=== PATIENT | male | born 1935 | race Caucasian/White ===

== ENCOUNTER → 2017-03-16 | Outpatient (CLI) | payer MEDICARE ==
[~2017-03-16] MED LIST: AMLO5TAB2 PO; ASPI-555 PO; ATOR20TA65 PO; CLOP75TA14 PO; DEXA5DRO4 OP; LATA2.5D2 OU; METF500T6 PO; METO-391 PO; MURO OU; PSYL1PAC11 PO; TAMS0.4C32 PO; [UNRECOGNIZED DRUG - CODE] OU
== END | disposition home or self-care (01) ==
LOC: RAH 13:49
PROVIDERS: ATTEND Internal Medicine Critical Care Medicine
DX: R05 Cough (principal)
CPT/HCPCS: 71046

== ENCOUNTER 2017-03-18 16:06 | Emergency (ER) | payer MEDICARE ==
[~2017-03-18 16:06] MED LIST changes: -DEXA5DRO4 OP; -LATA2.5D2 OU; -MURO OU; -PSYL1PAC11 PO; -[UNRECOGNIZED DRUG - CODE] OU
[2017-03-18] MEDS ORDERED: GUAIFENESIN-DM 200/20 MG 10 ML ONE (16:49)
[2017-03-18] MEDS ORDERED: SODIUM CHLORIDE 0.9% 1000ML 1,000 ML IV ONE (16:50)
[2017-03-18 16:52] LABS: BASOPHILS % (AUTO) 0.4 % (0.0-5.0); EOSINOPHILS % (AUTO) 0.9 % (0.0-8.0); HEMATOCRIT 40.4 % (42-54); LYMPHOCYTES % (AUTO) 45.9 % (21.0-51.0); MEAN CORPUSCULAR HEMOGLOBIN 32.7 pg (27.0-33.0); MEAN CORPUSCULAR HGB CONC 34.8 g/dL (32.0-36.0); MONOCYTES % (AUTO) 14.2 % (3.0-13.0); NEUTROPHILS % (AUTO) 38.6 % (40.0-77.0); PLATELET COUNT (AUTO) 270 K/uL (130-400); RED CELL DISTRIBUTION WIDTH 12.5 % (11.0-15.5); WHITE BLOOD COUNT (AUTO) 5.3 K/uL (4.8-10.8)
[2017-03-18 17:04] LABS: CREATININE 1.1 mg/dL (0.5-1.5); POTASSIUM 3.6 mmol/L (3.5-5.1)
[2017-03-18 17:04] LABS: APPEARANCE,URINE Clear (CLEAR); BILIRUBIN,URINE Negative (NEGATIVE); COLOR,URINE Dark Yellow (YELLOW); GLUCOSE, URINE (UA) Negative (NEGATIVE); KETONES,URINE Trace mg/dL (NEGATIVE); LEUKOCYTE ESTERASE ,URINE Negative (NEGATIVE); NITRATE,URINE Negative (NEGATIVE); OCCULT BLOOD,URINE Negative (NEGATIVE); PROTEIN,URINE Negative (NEGATIVE)
[2017-03-18 17:25] LABS: B-TYPE NATRIURETIC PEPTIDE 24 pg/mL (0-100)
[2017-03-18 17:35] LABS: BACTERIA,URINE Few /HPF (None Seen); RBC,URINE 0-1 /HPF (0-1); WBC,URINE 0-1 /HPF (0-1)
[2017-03-18 17:36] LABS: MUCUS,URINE Few LPF (None Seen); SQUAMOUS EPITHELIAL CELL,UR Few /LPF (0-2)
[2017-03-18] MEDS ORDERED: CEFTRIAXONE SODIUM 1 GM ONE (18:02)
[2017-03-18] MEDS ORDERED: AZITHROMYCIN 250 MG TABLET PO ONE ×2 (18:03→18:11)
[2017-03-18] MEDS ORDERED: BENZONATATE 100 MG CAPSULE PO ONE (18:13)
[2017-03-18] MEDS ORDERED: GUAIFENESIN-CODEINE 5 ML SYRUP ONE (18:14)
== END 2017-03-18 19:13 | disposition home or self-care (01) ==
LOC: EDH 16:06
DX: J18.9 Pneumonia, unspecified organism (principal); I25.10 Atherosclerotic heart disease of native coronary artery without angina pectoris; E11.9 Type 2 diabetes mellitus without complications; I10 Essential (primary) hypertension; Z88.6 Allergy status to analgesic agent; Z72.0 Tobacco use
CPT/HCPCS: 36415; 71046; 80048; 81001; 83880; 84484; 85025; 87804 ×2; 93005; 96374; 99285; J0696; J7030

== ENCOUNTER 2017-04-21 23:11 | Inpatient (IN) | payer MEDICARE ==
[~2017-04-21] VITALS: Ht 170.2 cm; Wt 110.5 kg
[2017-04-21 23:46] LABS: BASOPHILS % (AUTO) 2.4 % (0.0-5.0); EOSINOPHILS % (AUTO) 1.5 % (0.0-8.0); HEMATOCRIT 43.4 % (42-54); INR 0.95 (0.85-1.15); MEAN CORPUSCULAR HEMOGLOBIN 31.7 pg (27.0-33.0); MEAN CORPUSCULAR HGB CONC 33.9 g/dL (32.0-36.0); MEAN CORPUSCULAR VOLUME 93.8 fL (79-99); MONOCYTES % (AUTO) 6.6 % (3.0-13.0); NEUTROPHILS % (AUTO) 78.5 % (40.0-77.0); PLATELET COUNT (AUTO) 236 K/uL (130-400); RED BLOOD CELL COUNT(AUTO) 4.63 MIL/uL (4.50-6.20); RED CELL DISTRIBUTION WIDTH 13.3 % (11.0-15.5); WHITE BLOOD COUNT (AUTO) 13.6 K/uL (4.8-10.8)
[2017-04-21 23:48] LABS: ALBUMIN 3.9 g/dL (3.5-5.0); BILIRUBIN,TOTAL 0.4 mg/dL (0.2-1.0); TOTAL PROTEIN, SERUM 7.3 g/dL (6.0-8.3)
[2017-04-21] MEDS ORDERED: TETANUS/DIPHTHERIA TOXOID [ADULT] 0.5 ML VIAL IM ONE (23:55)
[2017-04-22] MEDS ORDERED: OCTYL 2-CYANOACRYLATE 1 EACH TP ONE (01:58)
[2017-04-22] MEDS ORDERED: SODIUM CHLORIDE 0.9% 1000ML 1,000 ML IV ONE (02:23)
[2017-04-22 03:10] VITALS: BP 156/82
[2017-04-22] MEDS ORDERED: PSYL1PAC11 PO (03:48)
[2017-04-22 04:00] VITALS: BP 122/62
[2017-04-22] MEDS ORDERED: PHARMACY COMMUNICATION MISC SCH (05:15)
[2017-04-22] MEDS ORDERED: POTASSIUM CHLORIDE 10% ELIXIR 20 MEQ/15 ML UDCUP PO PRN (06:15)
[2017-04-22] MEDS ORDERED: POTASSIUM CHLORIDE 20MEQ/100ML 100 ML IV PRN (06:15)
[2017-04-22] MEDS ORDERED: LIDOCAINE HCL-MPF 1% 2ML VIAL IVP PRN (06:15)
[2017-04-22] MEDS ORDERED: ONDANSETRON HCL 4 MG/2 ML VIAL IV PRN (06:15)
[2017-04-22] MEDS: CHLORDIAZEPOXIDE HCL 25 MG CAP PO SCH ×3 (06:45→21:17)
[2017-04-22] MEDS: INSULIN HUMULIN R 100 UNIT/ML 3ML SQ SCH ×4 (06:47→20:55)
[2017-04-22 06:58] LABS: APPEARANCE,URINE CLEAR (CLEAR); BILIRUBIN,URINE NEGATIVE (NEGATIVE); COLOR,URINE YELLOW (YELLOW); GLUCOSE, URINE (UA) NEGATIVE (NEGATIVE); KETONES,URINE 5 mg/dL (NEGATIVE); LEUKOCYTE ESTERASE ,URINE NEGATIVE (NEGATIVE); NITRATE,URINE NEGATIVE (NEGATIVE); OCCULT BLOOD,URINE NEGATIVE (NEGATIVE); PH,URINE 5.5 (5.0-8.0); PROTEIN,URINE NEGATIVE (NEGATIVE); UROBILINOGEN,URINE 0.2 mg/dL (0.2-1.0)
[2017-04-22 07:06] LABS: AMPHET/METH SCREEN,URINE NEGATIVE (NEGATIVE); BARBITURATE SCREEN, URINE NEGATIVE (NEGATIVE); BENZODIAZEPINES SCREEN,URINE NEGATIVE (NEGATIVE); CANNABINOID SCREEN,URINE NEGATIVE (NEGATIVE); COCAINE SCREEN,URINE NEGATIVE (NEGATIVE); OPIATE SCREEN,URINE NEGATIVE (NEGATIVE); PHENCYCLIDINE SCREEN,URINE NEGATIVE (NEGATIVE)
[2017-04-22 07:22] LABS: BACTERIA,URINE Rare /HPF (None Seen); HYALINE CASTS, URINE 0-1 /LPF (0-1 /LPF); MUCUS,URINE Rare LPF (None Seen); RBC,URINE 0-1 /HPF (0-1); SQUAMOUS EPITHELIAL CELL,UR Rare /LPF (0-2); WBC,URINE None Seen /HPF (0-1)
[2017-04-22 07:30] VITALS: BP 111/52
[2017-04-22] MEDS: M.V.I. IV [ADULT] 10 ML, FOLIC ACID 1 MG, THIAMINE HCL 100 MG in SODIUM CHLORIDE 0.9% 1... IV SCH (09:04)
[2017-04-22] MEDS: PANTOPRAZOLE SODIUM 40 MG TABLET.DR PO SCH (09:04)
[2017-04-22 11:00] VITALS: BP 121/56
[2017-04-22] MEDS: KETOROLAC TROMETHAMINE 15MG/ML IV PRN (11:05)
[2017-04-22 16:00] VITALS: BP 129/64
[2017-04-22] MEDS ORDERED: [UNRECOGNIZED DRUG - CODE] OU (16:46)
[2017-04-22] MEDS ORDERED: DEXA5DRO4 OP (16:46)
[2017-04-22] MEDS: DEXAMETHASONE SOD PHOSPHATE 4 MG/ML 1ML VIAL IVP SCH ×2 (19:51→23:46)
[2017-04-22 20:00] VITALS: BP 143/62
[2017-04-23] VITALS (7 sets, daily range): BP systolic 130–157; BP diastolic 60–82
[2017-04-23] MEDS: DEXAMETHASONE SOD PHOSPHATE 4 MG/ML 1ML VIAL IVP SCH ×4 (04:58→23:29)
[2017-04-23] MEDS: CHLORDIAZEPOXIDE HCL 25 MG CAP PO SCH ×3 (04:58→21:35)
[2017-04-23 05:40] LABS: HEMATOCRIT 39.7 % (42-54); MEAN CORPUSCULAR HEMOGLOBIN 32.8 pg (27.0-33.0); MEAN CORPUSCULAR HGB CONC 35.1 g/dL (32.0-36.0); MEAN CORPUSCULAR VOLUME 93.2 fL (79-99); PLATELET COUNT (AUTO) 237 K/uL (130-400); RED BLOOD CELL COUNT(AUTO) 4.26 MIL/uL (4.50-6.20); RED CELL DISTRIBUTION WIDTH 13.2 % (11.0-15.5); WHITE BLOOD COUNT (AUTO) 10.3 K/uL (4.8-10.8)
[2017-04-23] MEDS: INSULIN HUMULIN R 100 UNIT/ML 3ML SQ SCH ×4 (05:43→20:47)
[2017-04-23 05:45] LABS: CREATININE 0.9 mg/dL (0.5-1.5); POTASSIUM 4.3 mmol/L (3.5-5.1)
[2017-04-23] MEDS ORDERED: GADOBENATE DIMEGLUMINE 20 ML IV ONE (08:33)
[2017-04-23] MEDS: PANTOPRAZOLE SODIUM 40 MG TABLET.DR PO SCH (08:57)
[2017-04-23] MEDS ORDERED: PSYLLIUM SEED 1 EACH PACKET PO PRN (12:00)
[2017-04-23 12:45] LABS: PLATELET FUNCTION ANALYSIS ADP 82 SEC (62-100); PLATELET FUNCTION ANALYSIS EPI > 192 SEC (55-192)
[2017-04-23 12:46] LABS: HEMATOCRIT 39.7 % (42-54); PLATELET COUNT (AUTO) 237 K/uL (130-400)
[2017-04-23] MEDS: M.V.I. IV [ADULT] 10 ML, FOLIC ACID 1 MG, THIAMINE HCL 100 MG in SODIUM CHLORIDE 0.9% 1... IV SCH (12:53)
[2017-04-23] MEDS: BACLOFEN 10 MG TABLET PO SCH ×2 (15:55→21:35)
[2017-04-23] MEDS: TAMSULOSIN HCL 0.4 MG CAP.ER.24H PO SCH (20:03)
[2017-04-23] MEDS: METOPROLOL TARTRATE 25 MG TAB PO SCH (20:03)
[2017-04-23] MEDS: ATORVASTATIN CALCIUM 10 MG TABLET PO SCH (20:03)
[2017-04-24] VITALS (7 sets, daily range): BP systolic 107–150; BP diastolic 57–89
[2017-04-24] MEDS: DEXAMETHASONE SOD PHOSPHATE 4 MG/ML 1ML VIAL IVP SCH ×3 (05:45→17:08)
[2017-04-24] MEDS: CHLORDIAZEPOXIDE HCL 25 MG CAP PO SCH ×3 (05:45→21:16)
[2017-04-24] MEDS: INSULIN HUMULIN R 100 UNIT/ML 3ML SQ SCH ×4 (05:54→22:25)
[2017-04-24] MEDS: SODIUM CHLORIDE 5% 15 ML OPHTH SOLN OU SCH (09:00)
[2017-04-24] MEDS: BACLOFEN 10 MG TABLET PO SCH (09:00)
[2017-04-24] MEDS: DEXAMETHASONE SOD PHOSPHATE OP SCH (09:00)
[2017-04-24] MEDS: AMLODIPINE BESYLATE 5 MG TAB PO SCH (09:12)
[2017-04-24] MEDS: METOPROLOL TARTRATE 25 MG TAB PO SCH ×2 (09:12→21:16)
[2017-04-24] MEDS: PANTOPRAZOLE SODIUM 40 MG TABLET.DR PO SCH (09:12)
[2017-04-24] MEDS: FUROSEMIDE 20 MG TABLET PO SCH (11:58)
[2017-04-24] MEDS: M.V.I. IV [ADULT] 10 ML, FOLIC ACID 1 MG, THIAMINE HCL 100 MG in SODIUM CHLORIDE 0.9% 1... IV SCH (11:58)
[2017-04-24] MEDS: ATORVASTATIN CALCIUM 10 MG TABLET PO SCH (21:16)
[2017-04-24] MEDS: TAMSULOSIN HCL 0.4 MG CAP.ER.24H PO SCH (21:16)
[2017-04-25] MEDS: DEXAMETHASONE SOD PHOSPHATE 4 MG/ML 1ML VIAL IVP SCH ×4 (01:31→18:23)
[2017-04-25 04:00] VITALS: BP 128/70
[2017-04-25 05:09] LABS: HEMATOCRIT 38.7 % (42-54); MEAN CORPUSCULAR HEMOGLOBIN 32.6 pg (27.0-33.0); MEAN CORPUSCULAR HGB CONC 34.5 g/dL (32.0-36.0); MEAN CORPUSCULAR VOLUME 94.4 fL (79-99); PLATELET COUNT (AUTO) 285 K/uL (130-400); RED CELL DISTRIBUTION WIDTH 13.3 % (11.0-15.5); WHITE BLOOD COUNT (AUTO) 17.1 K/uL (4.8-10.8)
[2017-04-25 05:14] LABS: CREATININE 0.9 mg/dL (0.5-1.5); POTASSIUM 4.2 mmol/L (3.5-5.1)
[2017-04-25 05:29] LABS: B-TYPE NATRIURETIC PEPTIDE 40 pg/mL (0-100)
[2017-04-25] MEDS: INSULIN HUMULIN R 100 UNIT/ML 3ML SQ SCH ×4 (05:40→22:02)
[2017-04-25] MEDS: CHLORDIAZEPOXIDE HCL 25 MG CAP PO SCH ×3 (05:41→21:56)
[2017-04-25 07:49] VITALS: BP 150/82
[2017-04-25] MEDS: SODIUM CHLORIDE 5% 15 ML OPHTH SOLN OU SCH (09:00)
[2017-04-25] MEDS: DEXAMETHASONE SOD PHOSPHATE OP SCH (09:00)
[2017-04-25] MEDS: PANTOPRAZOLE SODIUM 40 MG TABLET.DR PO SCH (09:28)
[2017-04-25] MEDS: METOPROLOL TARTRATE 25 MG TAB PO SCH ×2 (09:28→21:56)
[2017-04-25] MEDS: FUROSEMIDE 20 MG TABLET PO SCH (09:28)
[2017-04-25] MEDS: AMLODIPINE BESYLATE 5 MG TAB PO SCH (09:28)
[2017-04-25 11:34] VITALS: BP 144/70
[2017-04-25 16:27] VITALS: BP 139/78
[2017-04-25 20:00] VITALS: BP 141/64
[2017-04-25] MEDS: TAMSULOSIN HCL 0.4 MG CAP.ER.24H PO SCH (21:56)
[2017-04-25] MEDS: ATORVASTATIN CALCIUM 10 MG TABLET PO SCH (21:56)
[2017-04-25 23:30] VITALS: BP 135/60
[2017-04-26] VITALS (30 sets, daily range): BP systolic 117–156; BP diastolic 58–85
[2017-04-26] MEDS: DEXAMETHASONE SOD PHOSPHATE 4 MG/ML 1ML VIAL IVP SCH ×4 (00:08→17:36)
[2017-04-26] MEDS: CHLORDIAZEPOXIDE HCL 25 MG CAP PO SCH ×3 (06:00→20:01)
[2017-04-26] MEDS: INSULIN HUMULIN R 100 UNIT/ML 3ML SQ SCH ×4 (06:47→21:00)
[2017-04-26] MEDS: DEXAMETHASONE SOD PHOSPHATE OP SCH (09:00)
[2017-04-26] MEDS: SODIUM CHLORIDE 5% 15 ML OPHTH SOLN OU SCH (09:00)
[2017-04-26] MEDS: AMLODIPINE BESYLATE 5 MG TAB PO SCH (09:00)
[2017-04-26] MEDS: PANTOPRAZOLE SODIUM 40 MG TABLET.DR PO SCH (09:00)
[2017-04-26] MEDS: METOPROLOL TARTRATE 25 MG TAB PO SCH ×2 (09:23→20:00)
[2017-04-26] MEDS: FUROSEMIDE 20 MG TABLET PO SCH (09:30)
[2017-04-26] MEDS ORDERED: SODIUM CHLORIDE 0.9% 1000ML 1,000 ML IV ONE ×3 (10:41→17:21)
[2017-04-26] MEDS ORDERED: MICROFIBRILLAR COLLAGEN 1 GM PACKAGE TP ONE (11:06)
[2017-04-26] MEDS ORDERED: BUPIVACAINE/PF 0.25% 30ML VIAL IJ ONE (11:06)
[2017-04-26] MEDS ORDERED: TOBRAMYCIN SULFATE 40MG/1ML VIAL ONE (11:06)
[2017-04-26] MEDS ORDERED: VANCOMYCIN HCL 1 GM VIAL ONE (11:06)
[2017-04-26] MEDS ORDERED: CITRIC ACID/SODIUM CITRATE 30 ML UDCUP ONE (11:17)
[2017-04-26] MEDS ORDERED: ONDANSETRON HCL 4 MG/2 ML VIAL ONE (11:30)
[2017-04-26] MEDS ORDERED: NEOSTIGMINE METHYLSULFATE 1MG/ML IV ONE (11:30)
[2017-04-26] MEDS ORDERED: LIDOCAINE PF 2% 5ML ABBOJECT ONE (11:30)
[2017-04-26] MEDS ORDERED: DEXAMETHASONE SOD PHOSPHATE 10MG/ML 1ML VIAL ONE (11:30)
[2017-04-26] MEDS ORDERED: GLYCOPYRROLATE 0.2 MG/ML 5 ML VIAL ONE (11:30)
[2017-04-26] MEDS ORDERED: SUCCINYLCHOLINE 200MG/10ML SYR ONE (11:31)
[2017-04-26] MEDS ORDERED: PROPOFOL 10 MG/ML 20ML VIAL IV ONE ×4 (11:31→12:49)
[2017-04-26] MEDS ORDERED: MIDAZOLAM HCL 1 MG/ML 2ML VIAL ONE (11:31)
[2017-04-26] MEDS ORDERED: FENTANYL CITRATE PF 50 MCG/1 ML 2ML VIAL ONE (11:33)
[2017-04-26] MEDS ORDERED: CEFAZOLIN SODIUM 1 GM VIAL ONE (11:55)
[2017-04-26] MEDS ORDERED: BACITRACIN 50,000 UNIT VIAL ONE (12:02)
[2017-04-26] MEDS ORDERED: EPHEDRINE SULFATE 50 MG/ML AMPULE ONE (12:03)
[2017-04-26] MEDS ORDERED: FENTANYL CITRATE PF 50 MCG/1 ML 5ML AMP IV ONE (12:05)
[2017-04-26] MEDS ORDERED: THROMBIN-JMI 20000 UNIT KIT TP ONE (12:10)
[2017-04-26] MEDS ORDERED: OCTYL 2-CYANOACRYLATE 1 EACH TP ONE (13:12)
[2017-04-26] MEDS ORDERED: IPRATROPIUM/ALBUTEROL SULFATE 3 ML SOLUTION IH ONE (14:19)
[2017-04-26] MEDS ORDERED: ACETAMINOPHEN-CODEINE 300/30MG TAB PO PRN ×2 (17:30)
[2017-04-26] MEDS: SODIUM CHLORIDE 0.9% 1000ML 1,000 ML IV SCH (17:30)
[2017-04-26] MEDS ORDERED: TRIMETHOBENZAMIDE HCL 100MG/1ML VIAL IM PRN (17:30)
[2017-04-26] MEDS: LORAZEPAM 2 MG/ML 1 ML VIAL IVP PRN (19:25)
[2017-04-26] MEDS: WATER FOR INJECTION,STERILE 20 ML VIAL IJ SCH (19:31)
[2017-04-26] MEDS: CEFAZOLIN SODIUM 1 GM VIAL IVP SCH (19:32)
[2017-04-26] MEDS ORDERED: CEFAZOLIN 2GM / 50 ML 50 ML IV SCH (20:00)
[2017-04-26] MEDS: ATORVASTATIN CALCIUM 10 MG TABLET PO SCH (20:01)
[2017-04-26] MEDS: TAMSULOSIN HCL 0.4 MG CAP.ER.24H PO SCH (20:01)
[2017-04-26] MEDS: KETOROLAC TROMETHAMINE 15MG/ML IV PRN (23:28)
[2017-04-27] VITALS (23 sets, daily range): BP systolic 126–172; BP diastolic 71–95
[2017-04-27] MEDS: CEFAZOLIN SODIUM 1 GM VIAL IVP SCH ×2 (03:08→12:00)
[2017-04-27] MEDS: WATER FOR INJECTION,STERILE 20 ML VIAL IJ SCH ×2 (03:08→12:00)
[2017-04-27] MEDS: LORAZEPAM 2 MG/ML 1 ML VIAL IVP PRN (03:19)
[2017-04-27 03:31] LABS: HEMATOCRIT 40.8 % (42-54); MEAN CORPUSCULAR HEMOGLOBIN 32.3 pg (27.0-33.0); MEAN CORPUSCULAR HGB CONC 34.4 g/dL (32.0-36.0); MEAN CORPUSCULAR VOLUME 94.1 fL (79-99); NUCLEATED RED BLOOD CELLS 0.1 % (0.0-0.19); PLATELET COUNT (AUTO) 269 K/uL (130-400); RED BLOOD CELL COUNT(AUTO) 4.34 MIL/uL (4.50-6.20); RED CELL DISTRIBUTION WIDTH 13.2 % (11.0-15.5); WHITE BLOOD COUNT (AUTO) 14.3 K/uL (4.8-10.8)
[2017-04-27 04:00] LABS: POTASSIUM 4.3 mmol/L (3.5-5.1)
[2017-04-27] MEDS: CHLORDIAZEPOXIDE HCL 25 MG CAP PO SCH (06:33)
[2017-04-27] MEDS: INSULIN HUMULIN R 100 UNIT/ML 3ML SQ SCH ×4 (06:39→21:00)
[2017-04-27] MEDS: DEXAMETHASONE SOD PHOSPHATE OP SCH (09:00)
[2017-04-27] MEDS: SODIUM CHLORIDE 5% 15 ML OPHTH SOLN OU SCH (09:00)
[2017-04-27] MEDS: PANTOPRAZOLE SODIUM 40 MG TABLET.DR PO SCH (09:23)
[2017-04-27] MEDS: METOPROLOL TARTRATE 25 MG TAB PO SCH ×3 (09:24→21:26)
[2017-04-27] MEDS: AMLODIPINE BESYLATE 5 MG TAB PO SCH (09:24)
[2017-04-27] MEDS ORDERED: CEFAZOLIN SODIUM 1 GM VIAL ONE ×2 (14:02→14:04)
[2017-04-27] MEDS: SODIUM CHLORIDE 0.9% 1000ML 1,000 ML IV SCH (17:32)
[2017-04-27] MEDS: TAMSULOSIN HCL 0.4 MG CAP.ER.24H PO SCH (21:26)
[2017-04-27] MEDS: ATORVASTATIN CALCIUM 10 MG TABLET PO SCH (21:26)
[2017-04-28] VITALS (23 sets, daily range): BP systolic 113–164; BP diastolic 54–99
[2017-04-28] MEDS: HYDRALAZINE HCL 20 MG/ML VIAL IV PRN (01:59)
[2017-04-28 03:41] LABS: HEMATOCRIT 43.5 % (42-54); MEAN CORPUSCULAR HEMOGLOBIN 31.8 pg (27.0-33.0); MEAN CORPUSCULAR HGB CONC 33.7 g/dL (32.0-36.0); MEAN CORPUSCULAR VOLUME 94.3 fL (79-99); PLATELET COUNT (AUTO) 255 K/uL (130-400); RED BLOOD CELL COUNT(AUTO) 4.62 MIL/uL (4.50-6.20); RED CELL DISTRIBUTION WIDTH 13.4 % (11.0-15.5); WHITE BLOOD COUNT (AUTO) 15.7 K/uL (4.8-10.8)
[2017-04-28 03:53] LABS: CREATININE 0.8 mg/dL (0.5-1.5)
[2017-04-28] MEDS: INSULIN HUMULIN R 100 UNIT/ML 3ML SQ SCH ×4 (05:59→21:00)
[2017-04-28] MEDS: CYCLOBENZAPRINE HCL 10 MG TABLET PO PRN ×2 (08:40→14:25)
[2017-04-28] MEDS: DEXAMETHASONE SOD PHOSPHATE OP SCH (09:00)
[2017-04-28] MEDS: SODIUM CHLORIDE 5% 15 ML OPHTH SOLN OU SCH (09:00)
[2017-04-28 09:17] LABS: ABG BASE EXCESS 1.9 mmol/L (-2.0-3.0); ABG OXYGEN SATURATION 99.1 % (95.0-99.0); ABG PCO2 44 mmHg (35-48)
[2017-04-28] MEDS: AMLODIPINE BESYLATE 5 MG TAB PO SCH (09:32)
[2017-04-28] MEDS: PANTOPRAZOLE SODIUM 40 MG TABLET.DR PO SCH (09:33)
[2017-04-28] MEDS: METOPROLOL TARTRATE 25 MG TAB PO SCH ×2 (09:33→21:20)
[2017-04-28] MEDS: OXYMETAZOLINE HCL SPRAY 15 ML BOTTLE EN SCH ×2 (11:30→21:10)
[2017-04-28] MEDS: FLUTICASONE PROPIONATE 50MCG/SPRAY 16 GM BOTTLE EN SCH (11:30)
[2017-04-28] MEDS ORDERED: HALOPERIDOL 1 MG TABLET PO SCH (17:00)
[2017-04-28] MEDS: SODIUM CHLORIDE 0.9% 1000ML 1,000 ML IV SCH (17:03)
[2017-04-28] MEDS ORDERED: PHARMACY COMMUNICATION MISC SCH (20:00)
[2017-04-28] MEDS: ATORVASTATIN CALCIUM 10 MG TABLET PO SCH (21:20)
[2017-04-28] MEDS: TAMSULOSIN HCL 0.4 MG CAP.ER.24H PO SCH (21:20)
[2017-04-28] MEDS: LORAZEPAM 2 MG/ML 1 ML VIAL IVP PRN (23:54)
[2017-04-29] VITALS (34 sets, daily range): BP systolic 101–189; BP diastolic 50–109
[2017-04-29] MEDS: HYDRALAZINE HCL 20 MG/ML VIAL IV PRN (01:04)
[2017-04-29] MEDS ORDERED: IPRATROPIUM/ALBUTEROL SULFATE 3 ML SOLUTION IH ONE (01:24)
[2017-04-29] MEDS ORDERED: CHLORDIAZEPOXIDE HCL 25 MG CAP PO PRN (01:30)
[2017-04-29] MEDS ORDERED: IPRATROPIUM/ALBUTEROL SULFATE 3 ML SOLUTION IH SCH (01:45)
[2017-04-29] MEDS: IPRATROPIUM/ALBUTEROL SULFATE 3 ML SOLUTION IH SCH ×6 (02:45→22:20)
[2017-04-29 04:06] LABS: HEMATOCRIT 40.8 % (42-54); MEAN CORPUSCULAR HEMOGLOBIN 32.3 pg (27.0-33.0); MEAN CORPUSCULAR HGB CONC 34.5 g/dL (32.0-36.0); MEAN CORPUSCULAR VOLUME 93.5 fL (79-99); NUCLEATED RED BLOOD CELLS 0.1 % (0.0-0.19); PLATELET COUNT (AUTO) 263 K/uL (130-400); RED BLOOD CELL COUNT(AUTO) 4.36 MIL/uL (4.50-6.20); RED CELL DISTRIBUTION WIDTH 13.4 % (11.0-15.5); WHITE BLOOD COUNT (AUTO) 14.7 K/uL (4.8-10.8)
[2017-04-29] MEDS: LORAZEPAM 2 MG/ML 1 ML VIAL IVP PRN (04:06)
[2017-04-29 04:13] LABS: CREATININE 0.8 mg/dL (0.5-1.5); POTASSIUM 3.4 mmol/L (3.5-5.1)
[2017-04-29] MEDS: POTASSIUM CHLORIDE 20 MEQ ERTAB PO PRN ×3 (04:38→20:30)
[2017-04-29] MEDS: INSULIN HUMULIN R 100 UNIT/ML 3ML SQ SCH ×4 (06:07→23:01)
[2017-04-29] MEDS: DEXAMETHASONE SOD PHOSPHATE OP SCH (07:53)
[2017-04-29] MEDS: ASPIRIN 81 MG EC TAB PO SCH (08:04)
[2017-04-29] MEDS: AMLODIPINE BESYLATE 5 MG TAB PO SCH (08:04)
[2017-04-29] MEDS: PANTOPRAZOLE SODIUM 40 MG TABLET.DR PO SCH (08:04)
[2017-04-29] MEDS: METOPROLOL TARTRATE 25 MG TAB PO SCH ×2 (08:04→21:00)
[2017-04-29] MEDS: CLOPIDOGREL BISULFATE 75 MG TAB PO SCH (08:04)
[2017-04-29] MEDS: OXYMETAZOLINE HCL SPRAY 15 ML BOTTLE EN SCH ×2 (08:05→21:14)
[2017-04-29] MEDS: FLUTICASONE PROPIONATE 50MCG/SPRAY 16 GM BOTTLE EN SCH (08:05)
[2017-04-29] MEDS ORDERED: HALOPERIDOL 1 MG TABLET PO SCH (09:15)
[2017-04-29] MEDS: THIAMINE HCL 100 MG TABLET PO SCH (10:24)
[2017-04-29] MEDS: LACTULOSE 20 GM/30 ML UDCUP PO SCH (10:25)
[2017-04-29] MEDS: SODIUM CHLORIDE 5% 15 ML OPHTH SOLN OU SCH (10:25)
[2017-04-29] MEDS: CYCLOBENZAPRINE HCL 10 MG TABLET PO PRN (10:25)
[2017-04-29] MEDS ORDERED: HALOPERIDOL LACTATE 5 MG/ML VIAL IM SCH (10:45)
[2017-04-29] MEDS ORDERED: LORAZEPAM 2 MG/ML 1 ML VIAL IVP PRN (11:45)
[2017-04-29] MEDS: DEXAMETHASONE SOD PHOSPHATE 4 MG/ML 1ML VIAL IVP SCH ×2 (11:54→22:58)
[2017-04-29] MEDS ORDERED: ROCURONIUM BROMIDE 10MG/1ML 5ML VL IV ONE (12:00)
[2017-04-29 12:09] LABS: ABG BASE EXCESS 1.1 mmol/L (-2.0-3.0); ABG HCO3 26.7 mmol/L (21.0-28.0); ABG OXYGEN SATURATION 91.9 % (95.0-99.0); ABG PCO2 46 mmHg (35-48)
[2017-04-29] MEDS: RACEPINEPHRINE HCL 2.25% 0.5 ML NEB SOLN NEB PRN ×2 (12:12→16:59)
[2017-04-29] MEDS ORDERED: PROPOFOL 1000 MG/100 ML 100 ML IV ONE (12:41)
[2017-04-29] MEDS ORDERED: FENTANYL CITRATE PF 50 MCG/1 ML 2ML VIAL ONE (12:43)
[2017-04-29] MEDS ORDERED: NOREPINEPHRINE 4MG/NS 250ML 250 ML IV SCH (13:00)
[2017-04-29] MEDS ORDERED: SODIUM CHLORIDE 0.9% 500ML 500 ML in SODIUM CHLORIDE 0.9% 500ML 500 ML IV STA (13:02)
[2017-04-29] MEDS: PROPOFOL 1000 MG/100 ML IV PRN ×3 (13:23→19:51)
[2017-04-29] MEDS: LACTATED RINGERS 1000ML 1,000 ML IV SCH ×2 (14:29→22:58)
[2017-04-29] MEDS: DIAZEPAM 5 MG TABLET PO SCH ×2 (15:10→21:02)
[2017-04-29] MEDS: ARTIFICAL TEARS SOL 15 ML OU SCH ×2 (15:10→18:19)
[2017-04-29] MEDS: CHLORHEXIDINE GLUCONATE 473 ML MOUTHWASH MM SCH (16:12)
[2017-04-29] MEDS: TAMSULOSIN HCL 0.4 MG CAP.ER.24H PO SCH (21:03)
[2017-04-29] MEDS: ATORVASTATIN CALCIUM 10 MG TABLET PO SCH (21:03)
[2017-04-30] VITALS (24 sets, daily range): BP systolic 110–145; BP diastolic 52–85
[2017-04-30] MEDS: ARTIFICAL TEARS SOL 15 ML OU SCH ×4 (00:01→18:24)
[2017-04-30] MEDS: PROPOFOL 1000 MG/100 ML IV PRN ×5 (00:44→20:09)
[2017-04-30] MEDS: IPRATROPIUM/ALBUTEROL SULFATE 3 ML SOLUTION IH SCH ×6 (02:09→21:58)
[2017-04-30] MEDS: CHLORHEXIDINE GLUCONATE 473 ML MOUTHWASH MM SCH ×2 (02:21→15:04)
[2017-04-30 03:59] LABS: HEMATOCRIT 36.1 % (42-54); MEAN CORPUSCULAR HEMOGLOBIN 32.1 pg (27.0-33.0); MEAN CORPUSCULAR HGB CONC 34.4 g/dL (32.0-36.0); MEAN CORPUSCULAR VOLUME 93.3 fL (79-99); PLATELET COUNT (AUTO) 212 K/uL (130-400); RED BLOOD CELL COUNT(AUTO) 3.87 MIL/uL (4.50-6.20); RED CELL DISTRIBUTION WIDTH 13.4 % (11.0-15.5); WHITE BLOOD COUNT (AUTO) 12.2 K/uL (4.8-10.8)
[2017-04-30 04:04] LABS: ABG BASE EXCESS 2.9 mmol/L (-2.0-3.0); ABG HCO3 26.9 mmol/L (21.0-28.0); ABG OXYGEN SATURATION 97.6 % (95.0-99.0); ABG PCO2 39 mmHg (35-48)
[2017-04-30 04:12] LABS: INR 0.94 (0.85-1.15); PARTIAL THROMBOPLASTIN TIME 24.3 SEC (26.3-35.5); PROTHROMBIN TIME 9.9 SEC (9.6-11.6)
[2017-04-30 04:21] LABS: ALBUMIN 2.4 g/dL (3.5-5.0); BILIRUBIN,TOTAL 0.7 mg/dL (0.2-1.0); CREATININE 0.7 mg/dL (0.5-1.5); MAGNESIUM 2.4 mg/dL (1.80-2.40); PHOSPHORUS 2.9 mg/dL (2.5-4.9); POTASSIUM 4.2 mmol/L (3.5-5.1); TOTAL PROTEIN, SERUM 5.2 g/dL (6.0-8.3)
[2017-04-30] MEDS: DIAZEPAM 5 MG TABLET PO SCH ×3 (05:02→21:32)
[2017-04-30] MEDS: INSULIN HUMULIN R 100 UNIT/ML 3ML SQ SCH ×4 (05:16→23:58)
[2017-04-30] MEDS: THIAMINE HCL 100 MG TABLET PO SCH (08:07)
[2017-04-30] MEDS: CLOPIDOGREL BISULFATE 75 MG TAB PO SCH (08:07)
[2017-04-30] MEDS: PANTOPRAZOLE SODIUM 40 MG TABLET.DR PO SCH (08:07)
[2017-04-30] MEDS: AMLODIPINE BESYLATE 5 MG TAB PO SCH (08:07)
[2017-04-30] MEDS: METOPROLOL TARTRATE 25 MG TAB PO SCH ×2 (08:07→21:32)
[2017-04-30] MEDS: ASPIRIN 81 MG EC TAB PO SCH (08:10)
[2017-04-30] MEDS: OXYMETAZOLINE HCL SPRAY 15 ML BOTTLE EN SCH ×2 (08:31→21:31)
[2017-04-30] MEDS: SODIUM CHLORIDE 5% 15 ML OPHTH SOLN OU SCH (08:32)
[2017-04-30] MEDS: FLUTICASONE PROPIONATE 50MCG/SPRAY 16 GM BOTTLE EN SCH (08:32)
[2017-04-30] MEDS: LACTULOSE 20 GM/30 ML UDCUP PO SCH (08:59)
[2017-04-30] MEDS: LACTATED RINGERS 1000ML 1,000 ML IV SCH ×2 (09:15→19:15)
[2017-04-30] MEDS ORDERED: PHARMACY COMMUNICATION MISC SCH (11:15)
[2017-04-30] MEDS ORDERED: CEFEPIME 1GM+NS 50ML 50 ML IV SCH (11:15)
[2017-04-30] MEDS: DOXYCYCLINE 100MG+NS 250ML 250 ML IV SCH ×2 (12:40→22:59)
[2017-04-30] MEDS: DEXAMETHASONE SOD PHOSPHATE 4 MG/ML 1ML VIAL IVP SCH ×2 (12:40→22:59)
[2017-04-30] MEDS: CEFEPIME HCL 1 GM VIAL IVP SCH ×2 (15:04→21:32)
[2017-04-30] MEDS: TAMSULOSIN HCL 0.4 MG CAP.ER.24H PO SCH (21:00)
[2017-04-30] MEDS: ATORVASTATIN CALCIUM 10 MG TABLET PO SCH (21:34)
[2017-05-01] VITALS (24 sets, daily range): BP systolic 130–162; BP diastolic 64–90
[2017-05-01] MEDS: LACTATED RINGERS 1000ML 1,000 ML IV SCH ×3 (00:05→22:17)
[2017-05-01] MEDS: PROPOFOL 1000 MG/100 ML IV PRN ×7 (00:05→22:16)
[2017-05-01] MEDS: ARTIFICAL TEARS SOL 15 ML OU SCH ×4 (02:02→18:33)
[2017-05-01] MEDS: CHLORHEXIDINE GLUCONATE 473 ML MOUTHWASH MM SCH ×2 (02:02→13:54)
[2017-05-01] MEDS: IPRATROPIUM/ALBUTEROL SULFATE 3 ML SOLUTION IH SCH ×6 (02:04→21:52)
[2017-05-01 03:38] LABS: CREATININE 0.7 mg/dL (0.5-1.5); MAGNESIUM 2.3 mg/dL (1.80-2.40); PHOSPHORUS 2.7 mg/dL (2.5-4.9); POTASSIUM 4.5 mmol/L (3.5-5.1)
[2017-05-01 03:39] LABS: HEMATOCRIT 35.5 % (42-54); MEAN CORPUSCULAR HGB CONC 34.7 g/dL (32.0-36.0); MEAN CORPUSCULAR VOLUME 95.2 fL (79-99); NUCLEATED RED BLOOD CELLS 0.1 % (0.0-0.19); PLATELET COUNT (AUTO) 214 K/uL (130-400); RED BLOOD CELL COUNT(AUTO) 3.72 MIL/uL (4.50-6.20); RED CELL DISTRIBUTION WIDTH 13.5 % (11.0-15.5); WHITE BLOOD COUNT (AUTO) 14.4 K/uL (4.8-10.8)
[2017-05-01 04:52] LABS: BAND NEUTROPHILS % (MANUAL) 4 % (0-2); LYMPHOCYTES % (MANUAL) 2 % (22-44); MAN.DIFF COMMENT-IMPRESSION MANUAL DIFFERENTIAL; METAMYELOCYTES % 1 % (0-0); MONOCYTES % (MANUAL) 7 % (2-9); PLATELET MORPHOLOGY COMMENT ADEQUATE; SEGMENTED NEUTROPHILS % 86 % (40-70)
[2017-05-01] MEDS: DIAZEPAM 5 MG TABLET PO SCH ×3 (05:31→21:13)
[2017-05-01] MEDS: CEFEPIME HCL 1 GM VIAL IVP SCH ×3 (06:04→21:13)
[2017-05-01] MEDS: INSULIN HUMULIN R 100 UNIT/ML 3ML SQ SCH ×3 (06:08→18:30)
[2017-05-01] MEDS: LACTULOSE 20 GM/30 ML UDCUP PO SCH (08:13)
[2017-05-01] MEDS: PANTOPRAZOLE SODIUM 40 MG TABLET.DR PO SCH (08:30)
[2017-05-01] MEDS: THIAMINE HCL 100 MG TABLET PO SCH (08:30)
[2017-05-01] MEDS: AMLODIPINE BESYLATE 5 MG TAB PO SCH (08:30)
[2017-05-01] MEDS: ASPIRIN 81 MG EC TAB PO SCH (08:31)
[2017-05-01] MEDS: FLUTICASONE PROPIONATE 50MCG/SPRAY 16 GM BOTTLE EN SCH (08:31)
[2017-05-01] MEDS: CLOPIDOGREL BISULFATE 75 MG TAB PO SCH (08:31)
[2017-05-01] MEDS: SODIUM CHLORIDE 5% 15 ML OPHTH SOLN OU SCH (08:31)
[2017-05-01] MEDS: METOPROLOL TARTRATE 25 MG TAB PO SCH ×2 (08:31→21:13)
[2017-05-01] MEDS: DEXAMETHASONE SOD PHOSPHATE 4 MG/ML 1ML VIAL IVP SCH ×2 (10:48→22:16)
[2017-05-01] MEDS: DOXYCYCLINE 100MG+NS 250ML 250 ML IV SCH ×2 (10:59→22:15)
[2017-05-01] MEDS: HEPARIN SODIUM 5000UNIT/ML 1ML VIAL SQ SCH (16:50)
[2017-05-01] MEDS: TAMSULOSIN HCL 0.4 MG CAP.ER.24H PO SCH (20:15)
[2017-05-01] MEDS: ATORVASTATIN CALCIUM 10 MG TABLET PO SCH (21:13)
[2017-05-02] VITALS (27 sets, daily range): BP systolic 132–181; BP diastolic 57–93
[2017-05-02] MEDS: ARTIFICAL TEARS SOL 15 ML OU SCH ×4 (01:23→19:52)
[2017-05-02] MEDS: PROPOFOL 1000 MG/100 ML IV PRN ×4 (02:12→14:01)
[2017-05-02] MEDS: IPRATROPIUM/ALBUTEROL SULFATE 3 ML SOLUTION IH SCH ×6 (02:14→22:24)
[2017-05-02] MEDS: CHLORHEXIDINE GLUCONATE 473 ML MOUTHWASH MM SCH ×2 (02:41→13:05)
[2017-05-02] MEDS: HEPARIN SODIUM 5000UNIT/ML 1ML VIAL SQ SCH ×2 (02:45→14:06)
[2017-05-02 04:02] LABS: HEMATOCRIT 36.2 % (42-54); MEAN CORPUSCULAR HEMOGLOBIN 32.4 pg (27.0-33.0); MEAN CORPUSCULAR HGB CONC 34.5 g/dL (32.0-36.0); PLATELET COUNT (AUTO) 223 K/uL (130-400); RED BLOOD CELL COUNT(AUTO) 3.85 MIL/uL (4.50-6.20); RED CELL DISTRIBUTION WIDTH 13.7 % (11.0-15.5); WHITE BLOOD COUNT (AUTO) 11.7 K/uL (4.8-10.8)
[2017-05-02 04:15] LABS: CREATININE 0.7 mg/dL (0.5-1.5); MAGNESIUM 2.2 mg/dL (1.80-2.40); PHOSPHORUS 3.3 mg/dL (2.5-4.9); POTASSIUM 4.6 mmol/L (3.5-5.1)
[2017-05-02] MEDS: DIAZEPAM 5 MG TABLET PO SCH ×3 (05:22→20:59)
[2017-05-02] MEDS: CEFEPIME HCL 1 GM VIAL IVP SCH ×3 (05:22→21:02)
[2017-05-02] MEDS: INSULIN HUMULIN R 100 UNIT/ML 3ML SQ SCH ×4 (05:24→18:00)
[2017-05-02] MEDS: PANTOPRAZOLE SODIUM 40 MG TABLET.DR PO SCH (08:26)
[2017-05-02] MEDS: THIAMINE HCL 100 MG TABLET PO SCH (08:26)
[2017-05-02] MEDS: METOPROLOL TARTRATE 25 MG TAB PO SCH ×2 (08:26→20:59)
[2017-05-02] MEDS: CLOPIDOGREL BISULFATE 75 MG TAB PO SCH (08:26)
[2017-05-02] MEDS: ASPIRIN 81 MG EC TAB PO SCH (08:26)
[2017-05-02] MEDS: AMLODIPINE BESYLATE 5 MG TAB PO SCH (08:26)
[2017-05-02] MEDS: LACTULOSE 20 GM/30 ML UDCUP PO SCH (08:44)
[2017-05-02] MEDS: FLUTICASONE PROPIONATE 50MCG/SPRAY 16 GM BOTTLE EN SCH (08:44)
[2017-05-02] MEDS: SODIUM CHLORIDE 5% 15 ML OPHTH SOLN OU SCH (08:47)
[2017-05-02] MEDS: DOXYCYCLINE 100MG+NS 250ML 250 ML IV SCH ×2 (10:30→22:16)
[2017-05-02] MEDS: LACTATED RINGERS 1000ML 1,000 ML IV SCH ×2 (10:30→20:58)
[2017-05-02] MEDS: DEXAMETHASONE SOD PHOSPHATE 4 MG/ML 1ML VIAL IVP SCH ×2 (10:44→23:03)
[2017-05-02] MEDS: FENTANYL 2500MCG+NS 250ML 250 ML IV PRN (15:59)
[2017-05-02] MEDS: MIDAZOLAM 100MG-0.9% NS 100ML 100 ML IV PRN (16:01)
[2017-05-02] MEDS: ATORVASTATIN CALCIUM 10 MG TABLET PO SCH (20:59)
[2017-05-02] MEDS: TAMSULOSIN HCL 0.4 MG CAP.ER.24H PO SCH (20:59)
[2017-05-03] VITALS (23 sets, daily range): BP systolic 118–175; BP diastolic 54–112
[2017-05-03] MEDS: ARTIFICAL TEARS SOL 15 ML OU SCH ×4 (00:08→20:03)
[2017-05-03] MEDS: IPRATROPIUM/ALBUTEROL SULFATE 3 ML SOLUTION IH SCH ×6 (02:40→22:00)
[2017-05-03] MEDS: MIDAZOLAM 100MG-0.9% NS 100ML 100 ML IV PRN (03:06)
[2017-05-03] MEDS: CHLORHEXIDINE GLUCONATE 473 ML MOUTHWASH MM SCH ×2 (03:07→14:46)
[2017-05-03] MEDS: HEPARIN SODIUM 5000UNIT/ML 1ML VIAL SQ SCH ×2 (03:11→14:45)
[2017-05-03 03:48] LABS: BASOPHILS % (AUTO) 0.2 % (0.0-5.0); HEMATOCRIT 36.9 % (42-54); LYMPHOCYTES % (AUTO) 10.8 % (21.0-51.0); MEAN CORPUSCULAR HEMOGLOBIN 32.1 pg (27.0-33.0); MEAN CORPUSCULAR VOLUME 94.4 fL (79-99); PLATELET COUNT (AUTO) 218 K/uL (130-400); RED BLOOD CELL COUNT(AUTO) 3.91 MIL/uL (4.50-6.20); RED CELL DISTRIBUTION WIDTH 13.3 % (11.0-15.5); WHITE BLOOD COUNT (AUTO) 11.5 K/uL (4.8-10.8)
[2017-05-03 04:07] LABS: ALBUMIN 2.2 g/dL (3.5-5.0); BILIRUBIN,TOTAL 0.5 mg/dL (0.2-1.0); CREATININE 0.7 mg/dL (0.5-1.5); PHOSPHORUS 3.1 mg/dL (2.5-4.9); TOTAL PROTEIN, SERUM 5.1 g/dL (6.0-8.3)
[2017-05-03] MEDS: DIAZEPAM 5 MG TABLET PO SCH ×3 (04:33→21:01)
[2017-05-03] MEDS: CEFEPIME HCL 1 GM VIAL IVP SCH ×3 (05:44→21:01)
[2017-05-03] MEDS: LACTATED RINGERS 1000ML 1,000 ML IV SCH ×2 (05:45→16:56)
[2017-05-03] MEDS: INSULIN HUMULIN R 100 UNIT/ML 3ML SQ SCH ×5 (06:00→17:58)
[2017-05-03] MEDS: AMLODIPINE BESYLATE 5 MG TAB PO SCH (08:10)
[2017-05-03] MEDS: THIAMINE HCL 100 MG TABLET PO SCH (08:10)
[2017-05-03] MEDS: PANTOPRAZOLE SODIUM 40 MG TABLET.DR PO SCH (08:10)
[2017-05-03] MEDS: ASPIRIN 81 MG EC TAB PO SCH (08:10)
[2017-05-03] MEDS: CLOPIDOGREL BISULFATE 75 MG TAB PO SCH (08:10)
[2017-05-03] MEDS: METOPROLOL TARTRATE 25 MG TAB PO SCH ×2 (09:00→21:01)
[2017-05-03] MEDS: SODIUM CHLORIDE 5% 15 ML OPHTH SOLN OU SCH (09:00)
[2017-05-03] MEDS: FLUTICASONE PROPIONATE 50MCG/SPRAY 16 GM BOTTLE EN SCH (09:00)
[2017-05-03] MEDS: DEXAMETHASONE SOD PHOSPHATE 4 MG/ML 1ML VIAL IVP SCH ×2 (11:49→23:39)
[2017-05-03] MEDS: DOXYCYCLINE 100MG+NS 250ML 250 ML IV SCH ×2 (11:50→22:30)
[2017-05-03] MEDS: LACTULOSE 20 GM/30 ML UDCUP PO SCH (12:11)
[2017-05-03] MEDS: FUROSEMIDE 10 MG/ML 4ML VIAL IV SCH ×2 (17:07→23:39)
[2017-05-03] MEDS: ATORVASTATIN CALCIUM 10 MG TABLET PO SCH (21:00)
[2017-05-03] MEDS: TAMSULOSIN HCL 0.4 MG CAP.ER.24H PO SCH (21:00)
[2017-05-04] VITALS (24 sets, daily range): BP systolic 107–150; BP diastolic 53–82
[2017-05-04] MEDS: ARTIFICAL TEARS SOL 15 ML OU SCH ×4 (00:20→20:20)
[2017-05-04] MEDS: MIDAZOLAM 100MG-0.9% NS 100ML 100 ML IV PRN (01:15)
[2017-05-04] MEDS: FENTANYL 2500MCG+NS 250ML 250 ML IV PRN (01:15)
[2017-05-04] MEDS: IPRATROPIUM/ALBUTEROL SULFATE 3 ML SOLUTION IH SCH ×6 (02:07→22:43)
[2017-05-04] MEDS: LACTATED RINGERS 1000ML 1,000 ML IV SCH (03:07)
[2017-05-04] MEDS: HEPARIN SODIUM 5000UNIT/ML 1ML VIAL SQ SCH ×2 (03:07→15:19)
[2017-05-04] MEDS: CHLORHEXIDINE GLUCONATE 473 ML MOUTHWASH MM SCH ×2 (03:13→15:20)
[2017-05-04 04:03] LABS: HEMATOCRIT 38.6 % (42-54); MEAN CORPUSCULAR HEMOGLOBIN 32.2 pg (27.0-33.0); MEAN CORPUSCULAR HGB CONC 34.1 g/dL (32.0-36.0); MEAN CORPUSCULAR VOLUME 94.3 fL (79-99); NUCLEATED RED BLOOD CELLS 0.1 % (0.0-0.19); PLATELET COUNT (AUTO) 245 K/uL (130-400); RED CELL DISTRIBUTION WIDTH 13.4 % (11.0-15.5); WHITE BLOOD COUNT (AUTO) 13.5 K/uL (4.8-10.8)
[2017-05-04 04:09] LABS: CREATININE 0.9 mg/dL (0.5-1.5); POTASSIUM 4.6 mmol/L (3.5-5.1)
[2017-05-04] MEDS: DIAZEPAM 5 MG TABLET PO SCH ×3 (05:48→20:32)
[2017-05-04] MEDS: CEFEPIME HCL 1 GM VIAL IVP SCH ×3 (05:48→21:24)
[2017-05-04 05:52] LABS: BAND NEUTROPHILS % (MANUAL) 5 % (0-2); LYMPHOCYTES % (MANUAL) 12 % (22-44); MAN.DIFF COMMENT-IMPRESSION MANUAL DIFFERENTIAL; METAMYELOCYTES % 2 % (0-0); MONOCYTES % (MANUAL) 8 % (2-9); PLATELET MORPHOLOGY COMMENT ADEQUATE; SEGMENTED NEUTROPHILS % 73 % (40-70)
[2017-05-04] MEDS: INSULIN HUMULIN R 100 UNIT/ML 3ML SQ SCH ×5 (06:37→23:46)
[2017-05-04] MEDS: FUROSEMIDE 10 MG/ML 4ML VIAL IV SCH (07:36)
[2017-05-04] MEDS: THIAMINE HCL 100 MG TABLET PO SCH (08:21)
[2017-05-04] MEDS: CLOPIDOGREL BISULFATE 75 MG TAB PO SCH (08:21)
[2017-05-04] MEDS: AMLODIPINE BESYLATE 5 MG TAB PO SCH (08:21)
[2017-05-04] MEDS: METOPROLOL TARTRATE 25 MG TAB PO SCH ×2 (08:21→20:32)
[2017-05-04] MEDS: PANTOPRAZOLE SODIUM 40 MG TABLET.DR PO SCH (08:21)
[2017-05-04] MEDS: ASPIRIN 81 MG EC TAB PO SCH (08:21)
[2017-05-04] MEDS: FLUTICASONE PROPIONATE 50MCG/SPRAY 16 GM BOTTLE EN SCH (08:22)
[2017-05-04] MEDS: SODIUM CHLORIDE 5% 15 ML OPHTH SOLN OU SCH (08:23)
[2017-05-04 10:23] LABS: ABG BASE EXCESS 5.1 mmol/L (-2.0-3.0); ABG HCO3 29.8 mmol/L (21.0-28.0); ABG OXYGEN SATURATION 97.4 % (95.0-99.0); ABG PCO2 44 mmHg (35-48)
[2017-05-04] MEDS: DOXYCYCLINE 100MG+NS 250ML 250 ML IV SCH ×2 (11:42→23:11)
[2017-05-04] MEDS: LACTULOSE 20 GM/30 ML UDCUP PO SCH (11:42)
[2017-05-04] MEDS: DEXAMETHASONE SOD PHOSPHATE 4 MG/ML 1ML VIAL IVP SCH ×2 (13:33→21:24)
[2017-05-04] MEDS: ATORVASTATIN CALCIUM 10 MG TABLET PO SCH (20:32)
[2017-05-04] MEDS: TAMSULOSIN HCL 0.4 MG CAP.ER.24H PO SCH (20:32)
[2017-05-05] VITALS (24 sets, daily range): BP systolic 114–176; BP diastolic 66–92
[2017-05-05] MEDS: ARTIFICAL TEARS SOL 15 ML OU SCH ×5 (00:37→23:50)
[2017-05-05] MEDS: HEPARIN SODIUM 5000UNIT/ML 1ML VIAL SQ SCH ×2 (02:13→16:42)
[2017-05-05] MEDS: CHLORHEXIDINE GLUCONATE 473 ML MOUTHWASH MM SCH ×2 (02:15→14:07)
[2017-05-05] MEDS: IPRATROPIUM/ALBUTEROL SULFATE 3 ML SOLUTION IH SCH ×6 (02:34→22:23)
[2017-05-05 04:10] LABS: HEMATOCRIT 36.8 % (42-54); MEAN CORPUSCULAR HEMOGLOBIN 32.2 pg (27.0-33.0); MEAN CORPUSCULAR HGB CONC 34.3 g/dL (32.0-36.0); MEAN CORPUSCULAR VOLUME 93.9 fL (79-99); PLATELET COUNT (AUTO) 239 K/uL (130-400); RED BLOOD CELL COUNT(AUTO) 3.92 MIL/uL (4.50-6.20); RED CELL DISTRIBUTION WIDTH 13.1 % (11.0-15.5); WHITE BLOOD COUNT (AUTO) 16.2 K/uL (4.8-10.8)
[2017-05-05 04:17] LABS: CREATININE 0.8 mg/dL (0.5-1.5); POTASSIUM 4.8 mmol/L (3.5-5.1)
[2017-05-05 04:30] LABS: B-TYPE NATRIURETIC PEPTIDE 25 pg/mL (0-100)
[2017-05-05] MEDS: DIAZEPAM 5 MG TABLET PO SCH (04:42)
[2017-05-05] MEDS: CEFEPIME HCL 1 GM VIAL IVP SCH ×3 (05:05→21:47)
[2017-05-05] MEDS: DEXAMETHASONE SOD PHOSPHATE 4 MG/ML 1ML VIAL IVP SCH ×3 (05:05→21:47)
[2017-05-05] MEDS: MIDAZOLAM 100MG-0.9% NS 100ML 100 ML IV PRN (05:38)
[2017-05-05] MEDS: INSULIN HUMULIN R 100 UNIT/ML 3ML SQ SCH ×4 (05:55→23:50)
[2017-05-05] MEDS: FENTANYL 2500MCG+NS 250ML 250 ML IV PRN (06:07)
[2017-05-05] MEDS: FLUTICASONE PROPIONATE 50MCG/SPRAY 16 GM BOTTLE EN SCH (09:00)
[2017-05-05] MEDS ORDERED: ASPIRIN 81MG TAB.CHEW ONE (09:22)
[2017-05-05] MEDS: CLOPIDOGREL BISULFATE 75 MG TAB PO SCH (09:29)
[2017-05-05] MEDS: METOPROLOL TARTRATE 25 MG TAB PO SCH ×2 (09:29→20:24)
[2017-05-05] MEDS: THIAMINE HCL 100 MG TABLET PO SCH (09:29)
[2017-05-05] MEDS: AMLODIPINE BESYLATE 5 MG TAB PO SCH (09:29)
[2017-05-05] MEDS: FUROSEMIDE 10 MG/ML 4ML VIAL IV SCH (09:30)
[2017-05-05] MEDS: SODIUM CHLORIDE 5% 15 ML OPHTH SOLN OU SCH (09:30)
[2017-05-05] MEDS: FAMOTIDINE/PF 20 MG/2 ML VIAL IV SCH ×2 (10:30→20:25)
[2017-05-05] MEDS ORDERED: PROPOFOL 1000 MG/100 ML IV PRN (10:30)
[2017-05-05] MEDS: DEXAMETHASONE 0.1% OS SCH (10:31)
[2017-05-05] MEDS ORDERED: MURO OU (11:11)
[2017-05-05] MEDS ORDERED: LATA2.5D2 OU (11:11)
[2017-05-05] MEDS: DOXYCYCLINE 100MG+NS 250ML 250 ML IV SCH ×2 (12:01→23:45)
[2017-05-05] MEDS ORDERED: DIAZEPAM 5 MG TABLET PO PRN (13:00)
[2017-05-05] MEDS ORDERED: ACETAMINOPHEN-CODEINE ELIXIR 5 ML UDCUP PO PRN ×2 (17:15)
[2017-05-05] MEDS ORDERED: MAG HYDROX/AL HYDROX/SIMETH ES 30 ML SUSP UDCUP PO SCH (17:15)
[2017-05-05] MEDS ORDERED: MAG HYDROX/AL HYDROX/SIMETH ES 30 ML SUSP UDCUP ONE (17:30)
[2017-05-05] MEDS: PROPOFOL 1000 MG/100 ML 100 ML IV PRN ×2 (20:13→23:45)
[2017-05-05] MEDS: ATORVASTATIN CALCIUM 10 MG TABLET PO SCH (20:25)
[2017-05-05] MEDS: TAMSULOSIN HCL 0.4 MG CAP.ER.24H PO SCH (20:25)
[2017-05-05] MEDS: LATANOPROST 2.5 ML DROPS OU SCH (20:26)
[2017-05-06] VITALS (24 sets, daily range): BP systolic 124–172; BP diastolic 55–92
[2017-05-06] MEDS: IPRATROPIUM/ALBUTEROL SULFATE 3 ML SOLUTION IH SCH ×6 (02:16→22:37)
[2017-05-06] MEDS: CHLORHEXIDINE GLUCONATE 473 ML MOUTHWASH MM SCH ×2 (02:38→14:37)
[2017-05-06] MEDS: HEPARIN SODIUM 5000UNIT/ML 1ML VIAL SQ SCH ×2 (03:05→14:40)
[2017-05-06 03:34] LABS: HEMATOCRIT 36.1 % (42-54); MEAN CORPUSCULAR HEMOGLOBIN 32.7 pg (27.0-33.0); MEAN CORPUSCULAR HGB CONC 35.4 g/dL (32.0-36.0); MEAN CORPUSCULAR VOLUME 92.5 fL (79-99); PLATELET COUNT (AUTO) 241 K/uL (130-400); RED BLOOD CELL COUNT(AUTO) 3.91 MIL/uL (4.50-6.20); RED CELL DISTRIBUTION WIDTH 13.3 % (11.0-15.5); WHITE BLOOD COUNT (AUTO) 17.1 K/uL (4.8-10.8)
[2017-05-06 03:48] LABS: CREATININE 0.7 mg/dL (0.5-1.5); POTASSIUM 4.2 mmol/L (3.5-5.1)
[2017-05-06] MEDS: PROPOFOL 1000 MG/100 ML 100 ML IV PRN (04:03)
[2017-05-06] MEDS: INSULIN HUMULIN R 100 UNIT/ML 3ML SQ SCH ×4 (05:04→23:18)
[2017-05-06] MEDS: DEXAMETHASONE SOD PHOSPHATE 4 MG/ML 1ML VIAL IVP SCH ×3 (05:22→21:08)
[2017-05-06] MEDS: CEFEPIME HCL 1 GM VIAL IVP SCH ×3 (05:22→21:03)
[2017-05-06] MEDS: ARTIFICAL TEARS SOL 15 ML OU SCH ×3 (05:23→20:25)
[2017-05-06] MEDS: SODIUM CHLORIDE 5% 15 ML OPHTH SOLN OU SCH (09:00)
[2017-05-06] MEDS: FLUTICASONE PROPIONATE 50MCG/SPRAY 16 GM BOTTLE EN SCH (09:00)
[2017-05-06] MEDS: FUROSEMIDE 10 MG/ML 4ML VIAL IV SCH (10:32)
[2017-05-06] MEDS: FAMOTIDINE/PF 20 MG/2 ML VIAL IV SCH ×2 (10:32→20:58)
[2017-05-06] MEDS: AMLODIPINE BESYLATE 5 MG TAB PO SCH (10:33)
[2017-05-06] MEDS: METOPROLOL TARTRATE 25 MG TAB PO SCH ×2 (10:33→20:58)
[2017-05-06] MEDS: THIAMINE HCL 100 MG TABLET PO SCH (10:33)
[2017-05-06] MEDS: ASPIRIN 81MG TAB.CHEW PO SCH (10:33)
[2017-05-06] MEDS: CLOPIDOGREL BISULFATE 75 MG TAB PO SCH (10:33)
[2017-05-06] MEDS: DEXAMETHASONE 0.1% OS SCH (10:38)
[2017-05-06] MEDS: SUCRALFATE 1 GM/10 ML PO SCH ×3 (11:30→23:43)
[2017-05-06] MEDS ORDERED: RACEPINEPHRINE HCL 2.25% 0.5 ML NEB SOLN NEB PRN (11:45)
[2017-05-06] MEDS: DOXYCYCLINE 100MG+NS 250ML 250 ML IV SCH ×2 (12:30→23:11)
[2017-05-06] MEDS: [UNRECOGNIZED DRUG - OTHER] OU SCH (14:30)
[2017-05-06] MEDS: SODIUM CHLORIDE OU SCH (14:30)
[2017-05-06] MEDS: LATANOPROST 2.5 ML DROPS OU SCH (20:40)
[2017-05-06] MEDS: ATORVASTATIN CALCIUM 10 MG TABLET PO SCH (20:58)
[2017-05-06] MEDS: TAMSULOSIN HCL 0.4 MG CAP.ER.24H PO SCH (20:58)
[2017-05-07] VITALS (18 sets, daily range): BP systolic 129–165; BP diastolic 69–98
[2017-05-07] MEDS: ARTIFICAL TEARS SOL 15 ML OU SCH ×4 (00:01→19:43)
[2017-05-07] MEDS: IPRATROPIUM/ALBUTEROL SULFATE 3 ML SOLUTION IH SCH ×6 (02:10→21:25)
[2017-05-07] MEDS: CHLORHEXIDINE GLUCONATE 473 ML MOUTHWASH MM SCH ×2 (02:12→13:39)
[2017-05-07] MEDS: HEPARIN SODIUM 5000UNIT/ML 1ML VIAL SQ SCH ×2 (02:18→16:26)
[2017-05-07 03:51] LABS: CREATININE 0.8 mg/dL (0.5-1.5); POTASSIUM 4.6 mmol/L (3.5-5.1)
[2017-05-07 03:56] LABS: HEMATOCRIT 41.8 % (42-54); MEAN CORPUSCULAR HEMOGLOBIN 32.1 pg (27.0-33.0); MEAN CORPUSCULAR HGB CONC 34.3 g/dL (32.0-36.0); MEAN CORPUSCULAR VOLUME 93.7 fL (79-99); PLATELET COUNT (AUTO) 273 K/uL (130-400); RED BLOOD CELL COUNT(AUTO) 4.46 MIL/uL (4.50-6.20); RED CELL DISTRIBUTION WIDTH 13.1 % (11.0-15.5); WHITE BLOOD COUNT (AUTO) 21.4 K/uL (4.8-10.8)
[2017-05-07] MEDS: DEXAMETHASONE SOD PHOSPHATE 4 MG/ML 1ML VIAL IVP SCH ×3 (05:42→21:23)
[2017-05-07] MEDS: SUCRALFATE 1 GM/10 ML PO SCH ×4 (05:42→23:23)
[2017-05-07] MEDS: CEFEPIME HCL 1 GM VIAL IVP SCH ×3 (05:42→21:24)
[2017-05-07] MEDS: INSULIN HUMULIN R 100 UNIT/ML 3ML SQ SCH ×3 (06:00→17:01)
[2017-05-07] MEDS: METOPROLOL TARTRATE 25 MG TAB PO SCH ×2 (08:42→21:23)
[2017-05-07] MEDS: THIAMINE HCL 100 MG TABLET PO SCH (08:42)
[2017-05-07] MEDS: FUROSEMIDE 10 MG/ML 4ML VIAL IV SCH (08:43)
[2017-05-07] MEDS: AMLODIPINE BESYLATE 5 MG TAB PO SCH (08:43)
[2017-05-07] MEDS: ASPIRIN 81MG TAB.CHEW PO SCH (08:43)
[2017-05-07] MEDS: FAMOTIDINE/PF 20 MG/2 ML VIAL IV SCH ×2 (08:43→21:23)
[2017-05-07] MEDS: CLOPIDOGREL BISULFATE 75 MG TAB PO SCH (08:43)
[2017-05-07] MEDS: DEXAMETHASONE 0.1% OS SCH (09:07)
[2017-05-07] MEDS: FLUTICASONE PROPIONATE 50MCG/SPRAY 16 GM BOTTLE EN SCH (09:07)
[2017-05-07] MEDS: SODIUM CHLORIDE 5% 15 ML OPHTH SOLN OU SCH (09:08)
[2017-05-07] MEDS: DOXYCYCLINE 100MG+NS 250ML 250 ML IV SCH ×2 (12:13→23:23)
[2017-05-07] MEDS: [UNRECOGNIZED DRUG - OTHER] OU SCH (12:20)
[2017-05-07] MEDS: SODIUM CHLORIDE OU SCH (12:20)
[2017-05-07] MEDS: ATORVASTATIN CALCIUM 10 MG TABLET PO SCH (21:24)
[2017-05-07] MEDS: TAMSULOSIN HCL 0.4 MG CAP.ER.24H PO SCH (21:24)
[2017-05-07] MEDS: LATANOPROST 2.5 ML DROPS OU SCH (21:34)
[2017-05-08] MEDS: INSULIN HUMULIN R 100 UNIT/ML 3ML SQ SCH ×5 (00:08→20:54)
[2017-05-08] MEDS: ARTIFICAL TEARS SOL 15 ML OU SCH (01:59)
[2017-05-08] MEDS: HEPARIN SODIUM 5000UNIT/ML 1ML VIAL SQ SCH ×3 (02:02→20:48)
[2017-05-08] MEDS: CHLORHEXIDINE GLUCONATE 473 ML MOUTHWASH MM SCH ×2 (02:04→20:51)
[2017-05-08] MEDS: IPRATROPIUM/ALBUTEROL SULFATE 3 ML SOLUTION IH SCH ×5 (02:16→22:22)
[2017-05-08 03:14] VITALS: BP 142/77
[2017-05-08 04:21] LABS: CREATININE 0.7 mg/dL (0.5-1.5); POTASSIUM 4.8 mmol/L (3.5-5.1)
[2017-05-08] MEDS: DEXAMETHASONE SOD PHOSPHATE 4 MG/ML 1ML VIAL IVP SCH ×2 (05:14→14:14)
[2017-05-08] MEDS: CEFEPIME HCL 1 GM VIAL IVP SCH ×3 (05:14→20:48)
[2017-05-08] MEDS: SUCRALFATE 1 GM/10 ML PO SCH ×4 (05:14→20:48)
[2017-05-08 05:55] LABS: MEAN CORPUSCULAR HEMOGLOBIN 31.5 pg (27.0-33.0); MEAN CORPUSCULAR HGB CONC 33.4 g/dL (32.0-36.0); MEAN CORPUSCULAR VOLUME 94.3 fL (79-99); PLATELET COUNT (AUTO) 213 K/uL (130-400); RED BLOOD CELL COUNT(AUTO) 4.88 MIL/uL (4.50-6.20); RED CELL DISTRIBUTION WIDTH 13.3 % (11.0-15.5)
[2017-05-08 07:00] VITALS: BP 138/78
[2017-05-08] MEDS ORDERED: DOXYCYCLINE 100MG+NS 250ML 250 ML IV SCH (09:00)
[2017-05-08] MEDS: THIAMINE HCL 100 MG TABLET PO SCH (09:29)
[2017-05-08] MEDS: METOPROLOL TARTRATE 25 MG TAB PO SCH ×2 (09:29→20:46)
[2017-05-08] MEDS: ASPIRIN 81MG TAB.CHEW PO SCH (09:29)
[2017-05-08] MEDS: FUROSEMIDE 10 MG/ML 4ML VIAL IV SCH (09:29)
[2017-05-08] MEDS: CLOPIDOGREL BISULFATE 75 MG TAB PO SCH (09:29)
[2017-05-08] MEDS: AMLODIPINE BESYLATE 5 MG TAB PO SCH (09:29)
[2017-05-08] MEDS: SODIUM CHLORIDE 5% 15 ML OPHTH SOLN OU SCH (09:31)
[2017-05-08] MEDS: FLUTICASONE PROPIONATE 50MCG/SPRAY 16 GM BOTTLE EN SCH (09:31)
[2017-05-08] MEDS: DEXAMETHASONE 0.1% OS SCH (09:31)
[2017-05-08 11:00] VITALS: BP 130/75
[2017-05-08] MEDS: [UNRECOGNIZED DRUG - OTHER] OU SCH (12:28)
[2017-05-08] MEDS: SODIUM CHLORIDE OU SCH (12:28)
[2017-05-08 16:29] VITALS: BP 136/80
[2017-05-08] MEDS ORDERED: DEXAMETHASONE 4 MG TAB PO SCH (17:15)
[2017-05-08 19:25] VITALS: BP 119/67
[2017-05-08] MEDS: ATORVASTATIN CALCIUM 10 MG TABLET PO SCH (20:46)
[2017-05-08] MEDS: DEXAMETHASONE 4 MG TAB PO SCH (20:46)
[2017-05-08] MEDS: FAMOTIDINE 20MG TAB 20 MG TAB PO SCH (20:46)
[2017-05-08] MEDS: TAMSULOSIN HCL 0.4 MG CAP.ER.24H PO SCH (20:46)
[2017-05-08] MEDS: LATANOPROST 2.5 ML DROPS OU SCH (20:51)
[2017-05-08 23:19] VITALS: BP 137/72
[2017-05-09] MEDS: IPRATROPIUM/ALBUTEROL SULFATE 3 ML SOLUTION IH SCH ×5 (02:18→19:20)
[2017-05-09 03:43] VITALS: BP 135/68
[2017-05-09] MEDS: CEFEPIME HCL 1 GM VIAL IVP SCH (05:15)
[2017-05-09] MEDS: SUCRALFATE 1 GM/10 ML PO SCH (05:16)
[2017-05-09] MEDS: INSULIN HUMULIN R 100 UNIT/ML 3ML SQ SCH (05:52)
[2017-05-09 07:00] VITALS: BP 140/81
[2017-05-09 09:16] LABS: HEMATOCRIT 43.3 % (42-54); MEAN CORPUSCULAR HEMOGLOBIN 31.7 pg (27.0-33.0); MEAN CORPUSCULAR HGB CONC 33.8 g/dL (32.0-36.0); MEAN CORPUSCULAR VOLUME 93.9 fL (79-99); PLATELET COUNT (AUTO) 233 K/uL (130-400); RED BLOOD CELL COUNT(AUTO) 4.62 MIL/uL (4.50-6.20); RED CELL DISTRIBUTION WIDTH 13.3 % (11.0-15.5); WHITE BLOOD COUNT (AUTO) 13.8 K/uL (4.8-10.8)
[2017-05-09 09:28] LABS: CREATININE 0.9 mg/dL (0.5-1.5); PHOSPHORUS 2.8 mg/dL (2.5-4.9); POTASSIUM 4.5 mmol/L (3.5-5.1)
[2017-05-09] MEDS: CLOPIDOGREL BISULFATE 75 MG TAB PO SCH (10:10)
[2017-05-09] MEDS: ASPIRIN 81MG TAB.CHEW PO SCH (10:10)
[2017-05-09] MEDS: THIAMINE HCL 100 MG TABLET PO SCH (10:10)
[2017-05-09] MEDS: DEXAMETHASONE 4 MG TAB PO SCH (10:11)
[2017-05-09] MEDS: FLUTICASONE PROPIONATE 50MCG/SPRAY 16 GM BOTTLE EN SCH (10:11)
[2017-05-09] MEDS: FAMOTIDINE 20MG TAB 20 MG TAB PO SCH (10:11)
[2017-05-09] MEDS: METOPROLOL TARTRATE 25 MG TAB PO SCH (10:11)
[2017-05-09] MEDS: AMLODIPINE BESYLATE 5 MG TAB PO SCH (10:11)
[2017-05-09] MEDS: CHLORHEXIDINE GLUCONATE 473 ML MOUTHWASH MM SCH (10:11)
[2017-05-09] MEDS: SODIUM CHLORIDE 5% 15 ML OPHTH SOLN OU SCH (10:12)
[2017-05-09] MEDS: DEXAMETHASONE 0.1% OS SCH (10:12)
[2017-05-09] MEDS: HEPARIN SODIUM 5000UNIT/ML 1ML VIAL SQ SCH (10:23)
[2017-05-09 11:00] VITALS: BP 137/102
[2017-05-09 16:00] VITALS: BP 147/76
[2017-05-09 19:47] VITALS: BP 121/60
[2017-05-09] MEDS ORDERED: DEXAMETHASONE 0.5 MG TAB PO SCH (21:00)
== END 2017-05-09 19:59 | DRG 28 ==
LOC: EDH 23:11 → OBSVTOIN 04-22 02:12 → EDHIP 04-22 02:12 → 4BH 04-22 02:43 → 2BH 04-26 16:27 → 2CH 04-29 12:53 → 2BH 05-06 09:06 → 2DH 05-07 18:46
PROVIDERS: ADMIT Family Medicine; ATTEND Family Medicine
PROC: 0RG10A0 Fusion of Cervical Vertebral Joint with Interbody Fusion Device, Anterior Approach, Anterior Column, Open Approach (ICD-10-PCS; 2017-04-26)
PROC: 4A11X4G Monitoring of Peripheral Nervous Electrical Activity, Intraoperative, External Approach (ICD-10-PCS; 2017-04-26)
PROC: 0RB30ZZ Excision of Cervical Vertebral Disc, Open Approach (ICD-10-PCS; principal; 2017-04-26 12:13)
PROC: 0BH17EZ Insertion of Endotracheal Airway into Trachea, Via Natural or Artificial Opening (ICD-10-PCS; 2017-04-29)
PROC: 5A1955Z Respiratory Ventilation, Greater than 96 Consecutive Hours (ICD-10-PCS; 2017-04-29)
DX: G95.89 Other specified diseases of spinal cord (principal); G92 Toxic encephalopathy; J96.00 Acute respiratory failure, unspecified whether with hypoxia or hypercapnia; M47.12 Other spondylosis with myelopathy, cervical region; S12.9XXA Fracture of neck, unspecified, initial encounter; F10.231 Alcohol dependence with withdrawal delirium; W19.XXXA Unspecified fall, initial encounter; I11.9 Hypertensive heart disease without heart failure; M48.02 Spinal stenosis, cervical region; S00.03XA Contusion of scalp, initial encounter; I25.10 Atherosclerotic heart disease of native coronary artery without angina pectoris; E11.9 Type 2 diabetes mellitus without complications; E66.01 Morbid (severe) obesity due to excess calories; E78.5 Hyperlipidemia, unspecified; F17.290 Nicotine dependence, other tobacco product, uncomplicated; G47.30 Sleep apnea, unspecified; E11.40 Type 2 diabetes mellitus with diabetic neuropathy, unspecified; M25.78 Osteophyte, vertebrae; T38.0X5A Adverse effect of glucocorticoids and synthetic analogues, initial encounter; Y93.89 Activity, other specified; Z79.02 Long term (current) use of antithrombotics/antiplatelets; Z79.82 Long term (current) use of aspirin; Z79.899 Other long term (current) drug therapy; Z95.5 Presence of coronary angioplasty implant and graft; Z96.653 Presence of artificial knee joint, bilateral; Z98.1 Arthrodesis status; Y92.89 Other specified places as the place of occurrence of the external cause; Y99.8 Other external cause status; Z68.38 Body mass index [BMI] 38.0-38.9, adult
CPT/HCPCS: 31500; 36415; 36600; 70450; 70490; 70551; 71045; 72020; 72125; 72141; 72148; 72170; 73090; 73110; 73560; 73562; 80048; 80053; 80305; 81001; 82140; 82550; 82803; 82948; 83605; 83735; 83880; 84100; 84484; 85025; 85027; 85576; 85610; 85730; 87040; 87071; 87088; 87205; 90714; 92610; 93005; 93306; 93880; 93970; 94002; 94003; 94150; 94640; 94660; 94664; 97039; A4218; A4344; A9577; G0480; J0330; J0360; J0690; J0692; J1030; J1040; J1100; J1630; J1644; J1815; J1885; J1940; J2001; J2060; J2250; J2405; J2704; J2710; J3010; J3260; J3370; J3411; J3490; J7030; J7040; J7120; J8540

== ENCOUNTER 2019-06-23 01:03 | Emergency (ER) | payer MEDICARE ==
[~2019-06-23 01:03] MED LIST changes: -AMLO5TAB2 PO; +AMLO5TAB9 PO; +DEXA5DRO4 OP; +LATA2.5D2 OU; +METF-444 PO; -METF500T6 PO; +MURO OU; +PSYL1PAC11 PO; +[UNRECOGNIZED DRUG - CODE] OU
[2019-06-23] MEDS ORDERED: HYDROCODONE/ACETAMINOPHEN 10/325 MG TAB ONE (01:28)
== END 2019-06-23 01:42 | disposition home or self-care (01) ==
LOC: EDH 01:03
DX: K59.00 Constipation, unspecified (principal); K64.4 Residual hemorrhoidal skin tags; I25.10 Atherosclerotic heart disease of native coronary artery without angina pectoris; E11.9 Type 2 diabetes mellitus without complications; I10 Essential (primary) hypertension; Z87.891 Personal history of nicotine dependence; Z79.899 Other long term (current) drug therapy

== ENCOUNTER → 2020-05-31 | Outpatient (CLI) | payer MEDICARE ==
[~2020-05-31] MED LIST changes: +AMLO-257 PO; -AMLO5TAB9 PO; -ASPI-555 PO; +ASPI-556 PO; +LATA2.5D14 OU; -LATA2.5D2 OU
== END | disposition home or self-care (01) ==
LOC: RAH 14:55
PROVIDERS: ATTEND Internal Medicine Critical Care Medicine
DX: M71.22 Synovial cyst of popliteal space [Baker], left knee (principal); I73.9 Peripheral vascular disease, unspecified
CPT/HCPCS: 93925

== ENCOUNTER → 2022-04-04 | Outpatient (CLI) | payer MEDICARE ==
[~2022-04-04] MED LIST changes: +CLOP-31 PO; -CLOP75TA14 PO; +REGADENOSON 0.4 MG/5 ML PF SYG IVP SCH
== END | disposition home or self-care (01) ==
LOC: SHCH 08:12
PROVIDERS: ATTEND Internal Medicine Cardiovascular Disease
DX: R07.9 Chest pain, unspecified (principal); I49.3 Ventricular premature depolarization
CPT/HCPCS: 78452; 96374; 93017; J2785; A9500 ×2